=== PATIENT | female | born 1990 | race Caucasian/White ===

== ENCOUNTER 2017-10-06 07:30 | Day surgery (SDC) | payer BC ==
[2017-10-06] MEDS ORDERED: MIDAZOLAM 1 MG/ML 2 ML INJ ×3 (09:07)
[2017-10-06] MEDS ORDERED: FENTAnyl 50 MCG/ML VIAL (09:07)
== END 2017-10-06 10:18 | disposition home or self-care (01) ==
LOC: GIL 07:30
DX: K64.8 Other hemorrhoids (principal)
CPT/HCPCS: 45380